=== PATIENT | male | born 1965 | race African-American/Black ===

== ENCOUNTER 2019-06-04 16:16 | Emergency (ER) | payer OTHER ==
[~2019-06-04] VITALS: Ht 175.3 cm; Wt 97.5 kg
[2019-06-04 17:00] VITALS: BP 144/91
[2019-06-04] MEDS ORDERED: KETOROLAC TROMETH 60MG/2ML VIAL IM ONE (17:15)
== END 2019-06-04 18:14 | disposition home or self-care (01) ==
LOC: ER 16:16
DX: G44.209 Tension-type headache, unspecified, not intractable (principal); E78.5 Hyperlipidemia, unspecified
CPT/HCPCS: 70450; 96372; 99284; J1885